=== PATIENT | female | born 1935 | race Caucasian/White ===

== ENCOUNTER 2016-09-27 14:12 | Emergency (ER) | payer MEDICARE, BC ==
--- OUTSIDE RECORDS SUMMARY | 2016-09-27 16:43 | XMS REPORT | Continuity of Care Document ---
:1935 Author Organization [facility] ([facility]) Address [address] [place] [address] Phone [phone] Care Team Providers Name Role Phone Theresa Shah Primary Care Provider [phone] Source Comments This disclosure is being made pursuant to the Care Everywhere program, applicable federal and state laws, and may not contain all informaitonavailable regarding this patient.[facility] ([facility]) Active Allergies and Adverse Reactions Allergen Noted Date Severity Reactions Comments Iopamidol 09/12/[address] IV contrast allergy- Pt states that she previously had trouble breathing following CT IV contrast- has been premedicated for scans at outside hospitals/ clinics. Rabeprazole 04/17/2009 OTHER Legs get weak. Red Dye Upper Airway Edema,Respiratory Distress Current Medications Prescription Sig. Disp. Refills Start Date End Date Status atenolol 50 mg Take 50 mg by Active tablet mouth daily. irbesartan-hydrochlo Take 1 Tab by Active rothiazide (AVALIDE) mouth daily. 300-12.5 mg per tablet levothyroxine 25 mcg Take 25 mcg by Active tablet mouth every morning before breakfast magnesium citrate PO Take by mouth Active as needed. cholecalciferol Take 1,000 Active (VITAMIN D3) 1,000 Units by mouth unit tablet daily. CALCIUM Take 10,000 Active CARBONATE/VITAMIN D3 Units by mouth. (VITAMIN D-3 PO) cyanocobalamin Place 2,500 mcg Active (VITAMIN B-12) 2,500 under the mcg SL tablet tongue daily. FERROUS SULFATE, Active DRIED (IRON (DRIED) PO) acetaminophen Take 325 mg by Active (TYLENOL) 325 mg mouth every 4 tablet hours as needed. predniSONE 50 mg Take 50 mg 13 3 tablet 0 09/14/2016 Active tablet hours before procedure, 50 mg 7 hours before procedure, then 50 mg 1 hour before procedure. CALCIUM Take 2 Tabs by Discontinued CITRATE/VITAMIN D3 mouth daily. 7 (CITRACAL + D PO) MULTIVITAMINS take 1 Tab by Discontinued W-MINERALS/LUT mouth daily. 7 (CENTRUM SILVER PO) diphenhydrAMINE 25 2 capsules (50 2 capsule 0 09/14/2016 mg capsule mg total) as 7 instructed for 1 dose. Take 50 mg 1 hour before the procedure. Active Problems Problem Noted Date Tumor, metastatic 09/12/2016 Osteoarthritis of hip 05/25/2012 Overview: Left hip. 07/11 - replaced. Nonrheumatic aortic valve insufficiency 05/25/2012 Overview: Formatting of this note may be different from the original. CARDIOVASCULAR PROCEDURES Echo/MUGA: Echo (Normal EF, Mild MR, Mild AR) - 08/09/2012 Shingles 02/28/2012 Overview: 01/09. Anti-viral caused adverse effects. Knee pain 04/14/2011 Overview: Right - anserine bursitis, genu vaglus. Shoulder pain 04/14/2011 Overview: Right - glenohumeral, bursitis and tendonitis. PMR (polymyalgia rheumatica) 10/21/2010 Overview: 03/08 sudden onset Hip and shoulder pain with stiffness, difficulty standing up and walking. Mils fever. ESR 75. Meds; Prednisone - off since 07/09. Restarted 04/11. 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 Extensive tumor with near full thickness myometrial invasion, lower uterine segment involvement, capillary lymphatic space invasion, and bilateral tube and ovary involvement. Had involved para-aortic lymph nodes. CAIT/BSO followed by concurrent pelvic and para-aortic radiotherapy and cisplatin chemotherapy which was then followed by cisplatin and taxol chemotherapy. She also received vaginal cuff brachytherapy. She completed her radiation therapy in early 1996. Paresthesia of both legs 10/21/2010 Overview: Thought due to chamo Multiple joint pain 04/17/2009 Overview: 03/08 sudden onset hip and shoulder pain with stiffness, difficulties standing up and walking. Mild fever. Never had similar problems in the past. Responded well to treatemnt with Arthrotec. Her ESR was 75. Dx with possible PMR. Osteoporosis 04/17/2009 Overview: Diagnosed after her cancer treatment in 1995. Currently taking Evista, calcium and vitamin D. Last DEXA scan 2 years ago showed improvement after treatment. Vitamin D 34 8/ Hypertension Most Recent Encounters Date Type Specialty Providers Description 09/26/2016 [facility]: Endometrial Encounter Specialty MD Eder cancer 09/26/2016 Office Visit OBG Reproductive Lillian William, Chief Comp: Patient MD Reported Reason For Visit 09/26/2016 [facility] Radiology [facility], Dx: History of Encounter Israel Sarmiento MD endometrial cancer 09/26/2016 [facility] Radiology [facility], Dx: History of Encounter Israel Sarmiento MD endometrial cancer 09/26/2016 Office Visit Pathology Lillian William, Dx: Endometrial cancer Lab Services, [facility] 09/26/2016 Office Visit OBG Reproductive Lillian William, Chief Comp: Patient MD Reported Reason For Visit 09/26/2016 Ancillary Orders OB Reproductive Lillian William, Dx: History of endometrial cancer (Primary Dx) 09/26/2016 Ancillary Orders OB Reproductive Lillian William Dx: History of endometrial cancer (Primary Dx) 09/26/2016 Surgery Radiology [facility] Ct Guided May Gaines MD Needle Aspiration ([id number]) 09/23/2016 Office Visit Urology Jaime Castillo R, Dx: Bilateral renal MD cysts (Primary Dx) 09/22/2016 Nurse Triage Patient Services Nataliia Blount Chief Comp: N, dining room 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 Question 09/22/2016 Telephone [facility] Roya Nguyen Chief Comp: Follow-up R 09/22/2016 Telephone OBG Reproductive Angel Lundberg, Chief Comp: RN Appointment Info 09/21/2016 Telephone OBG Reproductive Angel Lundberg, Chief Comp: RN Appointment Info 09/21/2016 Orders/Notes OB Reproductive Angel Lundberg, Dx: History of RN endometrial cancer (Primary Dx) 09/15/2016 Telephone Radiology Sarah Villegas Chief Comp: L, RN Appointment Info 09/14/2016 Telephone Orthopaedic Iris Redding Dx: Allergy to IVP dye (Primary Dx) 09/13/2016 Orders/Notes Orthopaedic Iris Redding Dx: Endometrial cancer (Primary Dx) 09/12/2016 Hospital Radiology Lillian Irving, Dx: Paraspinal mass Encounter 09/12/2016 [facility] Radiology Lillian Irving, Dx: Paraspinal mass Encounter 09/12/2016 [facility] Radiology Nasim Hammond, Dx: Paraspinal mass Encounter 09/12/2016 Office Visit Orthopaedic Iris Redding, Dx: Tumor, metastatic (Primary Dx) 09/12/2016 Office Visit OBG Reproductive Lillian William, Dx: Paraspinal mass (Primary Dx) 09/12/2016 [facility] Radiology Tiffani Mae Dx: Endometrial Encounter MD Guillermina cancer 09/09/2016 [facility] Radiology Get Jeter Chief Comp: Patient Encounter MD Jassi Reported Reason For Visit 09/09/2016 [facility] Radiology Get Jeter Chief Comp: Patient Encounter MD Jassi Reported Reason For Visit 09/09/2016 [facility] Radiology Get Jeter Chief Comp: Patient Encounter MD Jassi Reported Reason For Visit 09/09/2016 [facility] Radiology Travis Dhaliwal, Chief Comp: Patient Encounter MD Reported Reason For Visit 09/09/2016 [facility] Radiology Nasim Hammond, Chief Comp: Patient Encounter Reported Reason For Visit 09/08/2016 Office Visit Med Rheumatology Default, Other Chief Comp: Patient Billg - Defo Reported Reason For [place], Tessa, Visit MECHANICAL MAINTENANCE ENGINEER 09/02/2016 [facility]phone [facility] [place] Cari Jo, Chief Comp: RN Scheduling 09/02/2016 Orders/Notes [facility] [place] Cari Jo, Dx: Endometrial RN cancer (Primary Dx) 08/30/2016 Office Visit Pathology Charli, Dx: Neuroendocrine MD Raz malignancy Lab Services, [facility] 08/29/2016 Telephone [facility] Hematology and Fiordaliza Oconnell, Dx: Neuroendocrine doll wig maker malignancy (Primary Dx) 08/19/2016 Telephone [facility] Hematology and Kellie Manuel Chief Comp: Collect Oncology Kiarra Info For Upcoming Appointment 08/19/2016 [facility]phone [facility] [place] Tessa Bradley Chief Comp: Forms and Letters Requests 08/16/2016 Telephone [facility] [place] Tessa Bradley Chief Comp: Follow-up 08/16/2016 [facility]phone [facility] [place] Sonia Lao 08/05/2016 Telephone [facility] Charli, Chief Comp: MD Raz Appointment Request Immunizations Name Dates Previously Given Next Due Influenza, unspecified 05/06/2015,05/13/2009,06/20/1997 Social History Tobacco Use Types Packs/Day Years Used Date Never Smoker Smokeless Tobacco: Never Used Tobacco Cessation:Counseling Given: Yes Comments: Alcohol Use Drinks/Week oz/Week Comments No Last Filed Vital Signs Vital Sign Reading Time Taken Blood Pressure 189/68 09/26/2016 4:30 PM BOXING AND PRESSING SUPERVISOR Pulse 77 09/26/2016 4:30 PM BOXING AND PRESSING SUPERVISOR Temperature 36.7 C (98 F) 09/23/2016 10:50 AM BOXING AND PRESSING SUPERVISOR Respiratory Rate 16 09/26/2016 4:30 PM BOXING AND PRESSING SUPERVISOR Height 1.524 m (5') 09/12/2016 1:46 PM BOXING AND PRESSING SUPERVISOR Weight 73.4 kg (161 lb 13.1 oz) 09/12/2016 1:46 PM BOXING AND PRESSING SUPERVISOR Body Mass Index 31.6 09/12/2016 1:46 PM BOXING AND PRESSING SUPERVISOR Oxygen Saturation 97% 09/26/2016 4:30 PM BOXING AND PRESSING SUPERVISOR Plan of Care Date Type Specialty Providers Description 09/30/2016 Appointment Radiology Chief Comp: Patient Reported Reason For Visit 09/30/2016 Appointment Urology Jaime Castillo MD Chief Comp: Patient [address] [place] [address] Visit [phone] (Fax) 10/03/2016 Appointment OBG Reproductive Lillian William MD Chief Comp: Patient [address] [place] [address] Visit [phone] (Fax) 10/04/2016 Appointment Heart and Vascular MarkOmaira MD Chief Comp: Patient [address] [place] [address] Visit [phone] (Fax) 10/07/2016 Wait List Neurology 10/07/2016 Appointment Neurology Linnea Banegas MD Chief Comp: Patient [address] [place] [address] Visit [phone] (Fax) 10/11/2016 Appointment Med Rheumatology Default, Other Billg - Defo [address] [place] [address] [phone] (Fax) Chief Comp: Patient Mckay Canchola MD [address] [place] [address] [phone] (Fax) Reported Reason For Visit 11/24/2016 Appointment Heart and Vascular MarkOmaira MD Chief Comp: Patient [address] [place] [place] [address] Visit [phone] (Fax) Health Maintenance Due Date Last Done Comments Hepatitis B Vaccine (1 of 3 1935 - Primary Series) Tdap Vaccine 1948 Td Vaccine 12/04/1955 Colonoscopy 1987 Zoster Vaccine 1997 Mammogram 10/20/2001 10/20/2000, Additional history exists 09/21/1999, 08/28/1998 Osteoporosis Screening (DXA 2002 Bone Density) Pneumococcal Vaccine (1 of 2 2002 - PCV13) Lipid Disorder Screening 06/15/2004 06/15/1999 Influenza Vaccine: Seasonal 02/29/2016 05/06/2015, (#1) 05/13/2009, 06/20/1997 Results from Last [address] GUIDED FINE NEEDLE ASPIRATION (31709, 19034) (09/26/2016 3:36 PM) Impressions IMPRESSION: 1. Successful CT guided biopsy of a paraspinal mass PLAN: 1. Patient to be recovered by IR. 2. Patient to continue follow up with primary provider. Narrative PROCEDURE: CT guided paraspinal mass biopsy INDICATIONS: 80-year-old female with history of endometrial cancer and paraspinal mass. Patient presents for biopsy. ACCESS:Right paraspinal mass SPECIMENS:4 passes of right paraspinal mass CONTRAST: None ANESTHESIA:1% Local lidocaine MEDICATION: 1 mg Versed IV, 50 mcg Fentanyl IV. PHYSICIANS:STAFF RADIOLOGIST: Dr. Olguin PASTE THINNER: Mikel Rodriguez PA-C PULSES:Intact bilaterally COMPLICATIONS:None immediate BLOOD LOSS: Minimal FLUORO TIME & DOSE: Not applicable; Procedure done under CT guidance. SEDATION START TIME: 1500 SEDATION STOP TIME: 1515 TECHNIQUE/FINDINGS:The patient was identified.After the risks and benefits of the procedure were discussed with the Patient, an informed written consent was obtained.The patient was then brought back to CT scanner and placed prone on the table.A time out was performed. An entry site was localized using CT guidance along the plane where the existing paraspinal lesion is seen.. The area overlying the planned entry site was marked, prepped and draped in the usual sterile fashion.Approximately 10 ml of 1% lidocaine was infused locally. An 11 blade scalpel was then used to make a tiny entry incision for for a Temno17 gauge x 6 cm introducer needle, which was advanced percutaneously until its tip was seen just beyond the surface of the mass. Next, a Temno 18 gauge x 11 cm biopsy needle was placed within the introducer and 4 core biopsies were obtained and placed in preservative solution and sent to pathology for analysis. The introducer and biopsy needle were then removed. Post biopsy CT showed no immediate complication. The needle was removed. The procedure was terminated here. The patient tolerated the procedure well. There were no complications. Dr. Olguin performed the entire procedure. Mikel Rodriguez PA-C assisted during the procedure.I understand that Section 1842(b)(7)(D) of the Social Security Act generally prohibits Medicare physician fee schedule payment for the services of [id number] in teaching hospitals when qualified residents are available to furnish such service. I certify that the services for which payment is claimed were medically necessary and that no qualified resident was available to perform the services. I further understand that these services are subject to post-payment review by the carrier. Procedure Note [place], Incoming Imaging Results - MonSep 27, 2016 11:34 AM BOXING AND PRESSING SUPERVISOR PROCEDURE: CT guided paraspinal mass biopsy INDICATIONS: 80-year-old female with history of endometrial cancer and paraspinal mass. Patient presents for biopsy. ACCESS: Right paraspinal mass SPECIMENS: 4 passes of right paraspinal mass CONTRAST: None ANESTHESIA: 1% Local lidocaine MEDICATION: 1 mg Versed IV, 50 mcg Fentanyl IV. PHYSICIANS: STAFF RADIOLOGIST: Dr. Olguin PASTE THINNER: Mikel Rodriguez PA-C PULSES: Intact bilaterally COMPLICATIONS: None immediate BLOOD LOSS: Minimal FLUORO TIME & DOSE: Not applicable; Procedure done under CT guidance. SEDATION START TIME: 1500 SEDATION STOP TIME: 1515 TECHNIQUE/FINDINGS: The patient was identified. After the risks and benefits of the procedure were discussed with the Patient, an informed written consent was obtained. The patient was then brought back to CT scanner and placed prone on the table. A time out was performed. An entry site was localized using CT guidance along the plane where the existing paraspinal lesion is seen.. The area overlying the planned entry site was marked, prepped and draped in the usual sterile fashion. Approximately 10 ml of 1% lidocaine was infused locally. An 11 blade scalpel was then used to make a tiny entry incision for for a Temno 17 gauge x 6 cm introducer needle, which was advanced percutaneously until its tip was seen just beyond the surface of the mass. Next, a Temno 18 gauge x 11 cm biopsy needle was placed within the introducer and 4 core biopsies were obtained and placed in preservative solution and sent to pathology for analysis. The introducer and biopsy needle were then removed. Post biopsy CT showed no immediate complication. The needle was removed. The procedure was terminated here. The patient tolerated the procedure well. There were no complications. Dr. Olguin performed the entire procedure. Mikel Rodriguez PA-C assisted during the procedure. I understand that Section 1842(b)(7)(D) of the Social Security Act generally prohibits Medicare physician fee schedule payment for the services of [id number] in teaching hospitals when qualified residents are available to furnish such service. I certify that the services for which payment is claimed were medically necessary and that no qualified resident was available to perform the services. I further understand that these services are subject to post-payment review by the carrier. IMPRESSION IMPRESSION: 1. Successful CT guided biopsy of a paraspinal mass PLAN: 1. Patient to be recovered by IR. 2. Patient to continue follow up with primary provider. US GUIDED FINE NEEDLE ASPIRATION (09/26/2016 11:53 AM) Impressions Impression: 1. Successful US guided aspiration of a complex cystic lesion of the right kidney. 30 cc of straw-colored (and a small amount of bloody fluid) were aspirated and sent to cytology. No complications. --- Final --- Narrative [facility] Department of Radiology Ultrasound Division [address] [place] [address] ULTRASOUND REPORT NAME:SHANNAN ASHFORD Date of Service: 09/26/2016 MRN NO.: [id number] Date: 09/26/2016 Patient's : 1935Resident/Tech: [id number] Christine Louie Patient's Age: 80 yearsReferring MD:LILLIAN WILLIAM Indication: Renal cyst aspiration Technique: US guided right renal FNA biopsy. Findings: Biopsy/Procedure: A written informed consent was obtained after the procedure was discussed with the patient. A timeout procedure was performed. The entry site over the complex cystic lesion of the right kidney was localized using ultrasound guidance. The skin was then prepared and draped in the standard sterile fashion. 10 cc of 1% Xylocaine was used to infiltrate the overlying skin. 3 passes were made with 20G needle(s). 30 cc of straw colored fluid was aspirated from the cystic lesion, with a small amount of bloody fluid by the end of the procedure. The fluid was sent to cytology. Dr. Devine was present in the room for the entire procedure. Complications: There were no complications. The patient tolerated the procedure well. Monitoring: The patient will be monitored in Radiology recovery area for 3 hours and will be given the standard instruction sheet before discharge. Preprocedure MS=105/73, HR=65 ; Postprocedure SP=142/93, HR=66. Procedure Note [place], Incoming Imaging Results - MonSep 26, 2016 4:41 PM BOXING AND PRESSING SUPERVISOR [facility] Department of Radiology Ultrasound Division [address] [place] [address] ULTRASOUND REPORT NAME: SHANNAN ASHFORD Date of Service: 09/26/2016 MRN NO.: [id number] Review Date: 09/26/2016 Patient's : 1935 Resident/Tech: [id number] Christine Louie Patient's Age: 80 years Referring MD: LILLIAN WILLIAM Indication: Renal cyst aspiration Technique: US guided right renal FNA biopsy. Findings: Biopsy/Procedure: A written informed consent was obtained after the procedure was discussedwith the patient. A timeout procedure was performed. The entry site over the complex cystic lesion of the right kidney was localized using ultrasound guidance. The skin was then prepared and draped in the standard sterile fashion. 10 cc of 1% Xylocaine was used to infiltrate the overlying skin.3 passes were made with 20G needle(s). 30 cc of straw colored fluid was aspirated from the cystic lesion, with a small amount of bloody fluid by the end of the procedure. The fluid wassent to cytology. Dr. Devine was present in the room for the entire procedure. Complications: There were no complications. The patient tolerated the procedure well. Monitoring: The patient will be monitored in Radiology recovery area for 3 hours and will be given the standard instruction sheet before discharge. Preprocedure PZ=135/73, HR=65 ; Postprocedure PL=848/93, HR=66. IMPRESSION Impression: 1. Successful US guided aspiration of a complex cystic lesion of the right kidney. 30 cc of straw-colored (and a small amount of bloody fluid) were aspirated and sent to cytology. No complications. --- Final --- CYTOLOGY, FINE NEEDLE ASPIRATE (FNA) (09/26/2016 11:39 AM) Component Value Range Case Report Non-Medicinal Plant Picker Cytopathology Case: [id number] Authorizing Provider:Lillian William MDCollected: 09/26/2016 11:39 AM Ordering Location: Radiology: UltrasoundReceived: 09/26/2016 12:13 PM Pathologist: Dominick Palomares MD Specimen:Cyst Fluid, Right Kidney Cyst Fluid Interpretation Right Kidney Cyst Fluid:Histiocytes and sheets of bland epithelium consistent with benign cyst contents I have personally reviewed this case and edited the report as necessary. Specimen Description 30 mL peach fluid Specimen Other - Cyst Fluid US ABDOMEN LIMITED (09/26/2016 10:00 AM) Impressions Impression: 1. Large cystic lesion of the right kidney demonstrating septations and mild wall calcifications. No solid component amenable to core biopsy. The lesion was marked for US guided aspiration. --- Final --- Narrative [facility] Department of Radiology Ultrasound Division [address] [place] [address] ULTRASOUND REPORT NAME:SHANNAN ASHFORD Date of Service: 09/26/2016 MRN NO.: [id number] Date: 09/26/2016 Patient's : 1935Resident/Tech: [id number] Christine Luoie Patient's Age: 80 yearsReferring MD:LILLIAN WILLIAM Indication: 80 y/o with Patient has a history of Stage IIIC endometrioid carcinoma of the uterus. She has a cystic complex and calcified lesion in the right kidney, please eval for bx. Technique: Limited renal grayscale ultrasound. Comparison: CT. 11/11/2015. Findings: Kidney: + + + + :Structure :Features:Right : + + + + :Kidney:Present/Absent:Present : + + + + ::Size (cm) :9.34 x 5.2 x 3.6: + + + + ::Location:Normal: + + + + ::Shape :Normal : + + + + :Cortex:Echogenicity:Normal: + + + + :Renal Pelvis::No hydronephrosis.: + + + + ::: : + + + + + + + + + -+ :Right Kidney:Location :Size (cm):Echogenicity :Characteristics : + + + + + -+ :Lesion 1:right mid to :8.8x7.1x6.5:anechoic,: containing echogenic : ::lower pole : :septated and cyst:foci, septated and : :: : : :with through : :: : : :transmission : + + + + + -+ Procedure Note [place], Incoming Imaging Results - MonSep 26, 2016 4:42 PM BOXING AND PRESSING SUPERVISOR [facility] Department of Radiology Ultrasound Division [address] [place] [address] ULTRASOUND REPORT NAME: SHANNAN ASHFORD Date of Service: 09/26/2016 MRN NO.: [id number] Review Date: 09/26/2016 Patient's : 1935 Resident/Tech: [id number] Christine Louie Patient's Age: 80 years Referring MD: LILLIAN WILLIAM Indication: 80 y/o with Patient has a history of Stage IIIC endometrioid carcinoma of the uterus. She has a cystic complex and calcified lesion inthe right kidney, please eval for bx. Technique: Limited renal grayscale ultrasound. Comparison: CT. 11/11/2015. Findings: Kidney: + + + + :Structure :Features : Right : + + + + :Kidney :Present/Absent:Present : + + + + : :Size (cm) :9.34 x 5.2 x 3.6 : + + + + : :Location :Normal : + + + + : :Shape :Normal : + + + + :Cortex :Echogenicity :Normal : + + + + :Renal Pelvis: :No hydronephrosis.: + + + + : : : : + + + + + + + + + -+ :Right Kidney:Location :Size (cm) :Echogenicity :Characteristics : + + + + + -+ :Lesion 1 :right mid to :8.8x7.1x6.5:anechoic, :containingechogenic : : :lower pole : :septated and cyst:foci, septatedand : : : : : :with through : : : : : :transmission : + + + + + -+ IMPRESSION Impression: 1. Large cystic lesion of the right kidney demonstrating septations andmild wall calcifications. No solid component amenable to core biopsy. Thelesion was marked for US guided aspiration. --- Final --- DIFFERENTIAL (09/26/2016 9:11 AM) Component Value Range % Neutrophils-Auto Diff 83.2 % Neutrophils-Auto Diff 6400 9121-2914 /MM3 % Lymphocytes-Auto Diff 15.1 % Lymphocytes-Auto Diff 5528 901-6981 /MM3 % Monocytes-Auto Diff 0.9 % Monocytes-Auto Diff 70(L) 130-860 /MM3 % Eosinophils-Auto Diff 0.0 % Eosinophils-Auto Diff 0(L) 40-390 /MM3 % Basophils 0.1 % Basophils-Auto Diff 10 10-136 /MM3 % Immature Granulocytes-Auto Diff 0.7 % Immature Granulocytes-Auto Diff 50 /MM3 Specimen Whole Blood CBC (COMPLETE BLOOD COUNT) (09/26/2016 9:11 AM) Component Value Range WBC Count 7.7 3.7-10.5 K/MM3 RBC Count 3.93(L) 4.00-5.20 M/MM3 Hemoglobin 11.6(L) 11.9-15.5 g/dL Hematocrit 35 35-47 % MCV (Mean Corpuscular Volume) 89 82-99 FL MCH (Mean Corpuscular Hemoglobin) 30 25-35 PG MCHC (Mean Corpuscular Hemoglobin Concentration) 33 32-36 % Platelet Count 201 150-400 K/MM3 MPV (Mean Platelet Volume) 10.7 9.4-12.3 FL RBC Dist Width-STD 45.3 36.4-46.3 FL RBC Distrib Width 14.1 9.0-14.5 % Nucleated RBC 0 /100 WBC Specimen Whole Blood CBC WITH DIFFERENTIAL (09/26/2016 9:11 AM) Specimen Whole Blood Narrative The following orders were created for panel order CBC WITH DIFFERENTIAL. Procedure Abnormality Status --------- ------ CBC (COMPLETE BLOOD COUNT)[[id number]] AbnormalFinal result DIFFERENTIAL[[id number]] AbnormalFinal result Please view results for these tests on the individual orders. PT/INR (PROTHROMBIN TIME/INR) VENOUS (09/26/2016 9:11 AM) Component Value Range PT (Prothrombin Time) 11 9-12 secs INR 1.0 <4.0 Specimen Blood BASIC METABOLIC PANEL W/ CALCIUM (CHEM 8) (09/26/2016 9:11 AM) Component Value Range Sodium 138 135-145 mEq/L Potassium 4.0 3.5-5.0 mEq/L Chloride 99 95-107 mEq/L CO2 26 22-29 mEq/L Anion Gap 13 8-18 mEq/L BUN 23(H) 10-20 mg/dL Creatinine 1.2(H)Comment: 0.5-1.0 mg/dL Creatinine switched to enzymatic method on 12/07/2010.GFR equation switched to IDMS-traceable MDRD equation on 12/07/2010. Calculated GFR values are not valid in clinical settings where serum creatinine is changing. Glucose 135(H)Comment: 65-99 mg/dL The Expert Committee on the Diagnosis and Classification of Diabetes has defined impaired fasting glucose as greater than or equal to 100 mg/dL but less than 126 mg/dL.(Diabetes Care 28 (Suppl 1)S41,2005) Calcium 10.1 8.5-10.5 mg/dL Calculated GFR 43(L) >60 mL/min/1.73 m2 Specimen Blood EXTERNAL MRI-STORE& INTERPRET (09/12/2016 2:04 PM) Impressions Impression: 1. Enhancing soft tissue paraspinal mass extending from T9-T10 to L1 (biopsy proven to be carcinoma most consistent with either gynecologic or renal primary). 2. No other evidence of metastatic disease. CT of the abdomen and pelvis would better evaluate for intra-abdominal pathology. Narrative Outside MRI was performed at 1240 hours on 07/07/2016 at [facility]. 301 images are provided and interpreted on the in-house PACS. Procedure: MRI exam of the thoracic spine with contrast. Indication: 80-year-old female. History of endometrial cancer status post CAIT, BSO, XRT chemotherapy completed 1996. New paraspinal mass consistent with DIRECTOR INSURANCE versus renal cancer. Evaluate for extent of disease and metastases. Technique: Multisequence, multiplanar MRI of the thoracic spine before and after the administration of mL IV contrast. Comparison: External MRI lumbar spine WO contrast (06/17/2016), external CT abdomen (11/11/2015) Findings: There is normal alignment. Vertebral body heights and intervertebral disc spaces are grossly maintained. Visualized cord is within normal limits. Normal marrow signal. Multiple hemangiomas seen in the vertebral bodies. There are mild degenerative changes without significant stenosis. There is an enhancing soft tissue right paraspinal mass extending from T9-T10 to L1 and measuring approximately 7.4 x 2.3 x 5.8 cm in its largest dimensions, also seen on previous outside imaging. No other evidence of metastatic disease. 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 301 images are provided and interpreted on the in-house PACS. Procedure: MRI exam of the thoracic spine with contrast. Indication: 80-year-old female. History of endometrial cancer status post CAIT, BSO, XRT chemotherapy completed 1996. New paraspinal mass consistent with [employer]OR INSURANCE versus renal cancer. Evaluate for extent of disease and metastases. Technique: Multisequence, multiplanar MRI of the thoracic spine before and after the administration of mL IV contrast. Comparison: External MRI lumbar spine WO contrast (06/17/2016), external CT abdomen (11/11/2015) Findings: There is normal alignment. Vertebral body heights and intervertebral disc spaces are grossly maintained. Visualized cord is within normal limits. Normal marrow signal. Multiple hemangiomas seen in the vertebral bodies. There are mild degenerative changes without significant stenosis. There is an enhancing soft tissue right paraspinal mass extending from T9-T10 to L1 and measuring approximately 7.4 x 2.3 x 5.8 cm in its largest dimensions, also seen on previous outside imaging. No other evidence of metastatic disease. IMPRESSION Impression: 1. Enhancing soft tissue paraspinal mass extending from T9-T10 to L1 (biopsy proven to be carcinoma most consistent with either gynecologic or renal primary). 2. No other evidence of metastatic disease. CT of the abdomen and pelvis would better evaluate for intra-abdominal pathology. EXTERNAL CT-STORE& INTERPRET (09/12/2016 2:04 PM) Impressions Impression: 1. Stable right pleural soft tissue masses, unchanged in the past 8 months. 2. Stable complex cystic and calcified lesion in the right kidney. While there is calcification, there does not appear to be a substantial enhancing soft tissue component. Consider further evaluation with either ultrasound or MR. 3. Small nodule anterior abdominal wall adjacent to the surgical scar, may represent postoperative seroma, consider further evaluation ultrasound, this is slightly decreased in size since the study of 8 months ago. Narrative Outside film interpretation requested. Patient name: Shannan Ashford Exam was performed at 1149 hours on 08/03/2016 at [facility]. 246 images are provided and interpreted on the in-house PACS. Procedure: CT exam of the abdomen and pelvis without and with IV contrast. Technique: Exam is performed with IV and enteric contrast and consists of axial noncontrasted imaging through the abdomen; axial venous phase imaging through the abdomen; axial and coronal excretory phase imaging through the abdomen and pelvis. 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 Findings: Small right pleural effusion. Accompanying compressive atelectasis. In the medial pleura posteriorly on the right there is a poorly enhanced soft tissue mass measuring 5.7 x 2.6 x 6.1 cm. This has a mass effect on the adjacent lung but does not appear to involve the overlying ribs or vertebral. This is unchanged from the study of 8 months ago. Anteriorly in the right lower lobe abutting the diaphragm there is a 1.4 x 2.2 x 1.3 cm diameter low density lesion, also unchanged from the prior study. Focal fatty infiltration adjacent to the falciform ligament. No other focal liver lesions. No biliary duct dilation. Gallbladder present. Normal spleen, pancreas, and adrenal glands. Left renal cysts and small extrarenal pelvis. On the right, there is a lobulated cystic mass measuring 7.6 x 8.4 x 5.3 cm. Centrally in this mass there is cluster of partially calcified septations or debris. No definite enhancing component. This is similar to the prior study. No lymphadenopathy. Lower retroperitoneal and left pelvic surgical clips. No ascites or free intraperitoneal air. Small bowel and colon not dilated. Uterus and ovaries not identified with certainty. Bladder partially filled and partially obscured by beam hardening artifact from the patient's left hip prosthesis. Small low-density nodule in the infraumbilical right paramedian anterior abdominal wall adjacent to a healed surgical scar. No destructive bone lesions. 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 Patient name: Shannan Ashford Exam was performed at 1149 hours on 08/03/2016 at [facility]. 246 images are provided and interpreted on the in-house PACS. Procedure: CT exam of the abdomen and pelvis without and with IV contrast. Technique: Exam is performed with IV and enteric contrast and consists of axial noncontrasted imaging through the abdomen; axial venous phase imaging through the abdomen; axial and coronal excretory phase imaging through the abdomen and pelvis. 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 Findings: Small right pleural effusion. Accompanying compressive atelectasis. In the medial pleura posteriorly on the right there is a poorly enhanced soft tissue mass measuring 5.7 x 2.6 x 6.1 cm. This has a mass effect on the adjacent lung but does not appear to involve the overlying ribs or vertebral. This is unchanged from the study of 8 months ago. Anteriorly in the right lower lobe abutting the diaphragm there is a 1.4 x 2.2 x 1.3 cm diameter low density lesion, also unchanged from the prior study. Focal fatty infiltration adjacent to the falciform ligament. No other focal liver lesions. No biliary duct dilation. Gallbladder present. Normal spleen, pancreas, and adrenal glands. Left renal cysts and small extrarenal pelvis. On the right, there is a lobulated cystic mass measuring 7.6 x 8.4 x 5.3 cm. Centrally in this mass there is cluster of partially calcified septations or debris. No definite enhancing component. This is similar to the prior study. No lymphadenopathy. Lower retroperitoneal and left pelvic surgical clips. No ascites or free intraperitoneal air. Small bowel and colon not dilated. Uterus and ovaries not identified with certainty. Bladder partially filled and partially obscured by beam hardening artifact from the patient's left hip prosthesis. Small low-density nodule in the infraumbilical right paramedian anterior abdominal wall adjacent to a healed surgical scar. No destructive bone lesions. IMPRESSION Impression: 1. Stable right pleural soft tissue masses, unchanged in the past 8 months. 2. Stable complex cystic and calcified lesion in the right kidney. While there is calcification, there does not appear to be a substantial enhancing soft tissue component. Consider further evaluation with either ultrasound or MR. 3. Small nodule anterior abdominal wall adjacent to the surgical scar, may represent postoperative seroma, consider further evaluation ultrasound, this is slightly decreased in size since the study of [address] FILMS - STORE ONLY (09/09/2016 2:34 PM)EXTERNAL MRI - STORE ONLY ( 09/09/2016 2:33 PM)EXTERNAL CT - STORE ONLY (09/09/2016 12:36 PM)SURGICAL PATHOLOGY EXAM (08/30/2016 8:51 AM) Component Value Range Case Report Surgical Pathology Case: [id number] Authorizing Provider:Raz Augustin MDCollected: 08/30/2016 08:51 AM [facility] Lab[facility]: 08/30/2016 08:51 AM Pathologist: Trish Caldera MD Specimen:Outside material Diagnosis Soft tissue, right paraspinal, biopsy ([id number]; 07/14/16): Metastatic PAX8 positive carcinoma. See comment. I have personally reviewed this case and edited the report as necessary. Comment There is no evidence of neuroendocrine differentiation. Diffuse PAX8 positivity is consistent with either a gynecologic primary or a renal primary.Recommend clinicopathologic correlation. Clinical Information 80 year old woman with right paraspinal mass. Please review outside slides and send remaining unstained slides to [facility] in [facility]. Please complete Ki67 and sst2R staining. Gross Description [id number], 10 slides; date of specimen: 07/14/16 [id number], 1 block (A1=A1) Received from [facility], Department of Pathology, [address] [place] [id number], phone: [phone]. Microscopic Description Reviewed are two H and E stained slides and eight immunostained slides (PAX8, estrogen receptors, CD10, TTF1, GATA3, CDX2 with controls), all labeled [id number], with a corresponding pathology report. Tumor cells are positive for PAX8 and negative for estrogen receptors, CD10, TTF1, GATA3 and CDX2.Additional immunostains, performed at [facility], show the tumor cells to be negative for estrog en and progesterone receptors, synaptophysin and chromogranin. Microscopic examination performed and supports the diagnosis. Performed by:Catalina Allison MD, Fellow/rls IHC Section IHC: All controls show appropriate reactivity. This test was developed and its performance characteristics determined by the immunopathology Laboratory at the [facility] and [facility]. It has not been cleared or approved by the US Food and Drug Administration.FDA does not require this test to go through premarket FDA review.This test is used for clinical purposes.It should not be regarded as investigational or fo r research. This laboratory is certified under the Clinical Laboratory Improvement Amendments (CLIA) as qualified to perform high complexity clinical laboratory testing. Specimen Tissue - Outside material
--- NOTE | 2016-09-27 17:12 | ERNOTE ---
Medical Problem HPI - General Chief Complaint: General Assessment Time Seen by Provider: 09/27/16 16:35 Source: patient, family Exam Limitations: no limitations - Immun/Allergies/Home Medications Immunizations: IMMUNIZATION HX History of Influenza Vaccine Yes Hx Pneumococcal Vaccination Yes Allergies/Adverse Reactions: Allergies hydrocortisone acetate [From Hydrocortone Acetate] Allergy (Unknown, Verified 14:28) red dye Allergy (Unknown, Verified 09/27/16 14:28) iontophoresis Adverse Reaction (Uncoded 09/27/16 14:28) solumedrol Adverse Reaction (Uncoded 09/27/16 14:28) Home Medications: HOME MEDICATIONS Atenolol [Tenormin] 50 mg PO DAILY 12/09/15 [Last Taken 12/08/15] Irbesartan/Hydrochlorothiazide [Avalide 300-12.5 mg Tablet] 1 each PO DAILY 06/15 [Last Taken 12/08/15] Levothyroxine Sodium [Synthroid] 25 mcg PO DAILY 12/09/15 [Last Taken 12/08/15] - History of Present History Narrative: Patient is here for hypertension. She has been on blood pressure medication for years and recently started to measure it again. Over the last week her blood pressure have been running high in the 180's to 200's systolic. She was recently diagnosed with cancer and she had biopsies at the [facility] yesterday. Her blood pressure at that time was running over 200. She denies any symptoms, just feels fatigued Review of Systems - Review of Systems Constitutional: Present: recent illness. Absent: fever, chills EYE: Absent: double vision, vision changes ENT: Absent: nose congestion, sore throat Respiratory: Absent: shortness of breath, cough Cardiology: Absent: chest pain Gastrointestinal/Abdominal: Absent: nausea, vomiting, abdominal pain Genitourinary: Present: no symptoms reported Neurological: Absent: headache, weakness, numbness Hematologic/Lymphatic: Absent: easy bruising - Patient's Past Medical History Patient History - Medical: Cataracts, GERD, Other Patient History - Cardiac/Respiratory: Hypertension, Hyperlipidemia Patient History - Cancer: Kidney, Chemotherapy history, Ovarian, Radiation Therapy Patient History - Surgical Procedures: Hysterectomy Patient History - Other: None - Social History Living Situations: home Abuse History: No History of abuse Psych History: No pertinent hx Smoking Status: Never smoker Alcohol Use: none Drug Use: none - Immunizations Hx Pneumococcal Vaccination: Yes History of Influenza Vaccine: Yes Physical Exam - Physical Exam General Appearance: Present: wd/wn, alert, no apparent distress, anxious Eye Exam: Normal inspection: bilateral, PERRL: bilateral, EOMI: bilateral Ears, Nose, Throat: Present: normal ENT inspection, normal pharynx Neck: Present: normal inspection, supple Respiratory: Present: no respiratory distress, normal breath sounds, no accessory muscle use, lungs clear Cardiovascular/Chest: Present: regular rate, rhythm, no murmur Gastrointestinal/Abdominal: Present: soft Neurological Exam: Present: alert, oriented, normal mood/affect, no motor/ sensory deficits Skin Exam: Present: normal color, warm/dry ED Progress - Vital Signs Patient's Vital Signs:: I have reviewed the patient's vital signs. Vital Signs: Vital Signs 09/27/16 14:24 Pulse Rate 62 Respiratory 12 Rate Blood Pressure 161/57 O2 Sat by Pulse 97 Oximetry - Progress/Reassessment Chief Complaint: General Assessment Progress Note-Subjective: 09/27/16 17:00 discussed with family that blood pressure is most likely due to her recent stress as well as the fact that she might require more blood pressure as she is getting older and has not checked her blood pressure until recently. Offered blood work, family declined as she just had a lot of blood work done yesterday (though it is not available to us) discussed adjusting medications and keep a record of the blood pressure til they see Dr Flores next week Departure - Departure Clinical Impression: Hypertension, uncontrolled Disposition: Home self-care Condition: Good Instructions: Hypertension, Clxl-rx-Eqrh Additional Instructions: take half a pill of your atenolol when you get home, starting tomorrow morning take one and a half of your atenolol (50mg) pills take yur blood pressure a couple times a day, write down the results and discussed with Dr Flores when you see her next week Referrals: Theresa Shah MD [Primary Care Provider] - Omaira Flores MD [Associate] -
[2016-09-27 17:19] VITALS: BP 175/61
== END 2016-09-27 17:05 | disposition home or self-care (01) ==
LOC: ER 14:12
DX: I10 Essential (primary) hypertension (principal); Z85.528 Personal history of other malignant neoplasm of kidney; Z85.43 Personal history of malignant neoplasm of ovary

== ENCOUNTER 2016-10-18 12:15 | Emergency (ER) | payer MEDICARE, BC ==
--- NOTE | 2016-10-18 13:20 | ERNOTE ---
Lower Extremity HPI - Narrative Date of Service: 10/18/16 - General Lower Extremities Pain: foot: left Time Seen by Provider: 10/18/16 13:09 Source: patient, family, RN notes reviewed Exam Limitations: no limitations - Immun/Allergies/Home Medications Immunizations: IMMUNIZATION HX History of Influenza Vaccine Yes Hx Pneumococcal Vaccination Yes Allergies/Adverse Reactions: Allergies Allergy/AdvReac Type Severity Reaction Status Date / Time hydrocortisone acetate Allergy Unknown Verified 10/18/16 12:41 [From Hydrocortone Acetate] red dye Allergy Unknown Verified 10/18/16 12:41 iontophoresis AdvReac Uncoded 10/18/16 12:41 solumedrol AdvReac Uncoded 10/18/16 12:41 Home Medications: HOME MEDICATIONS Atenolol [Tenormin] 50 mg PO DAILY 12/09/15 [Last Taken 12/08/15] Irbesartan/Hydrochlorothiazide [Avalide 300-12.5 mg Tablet] 1 each PO DAILY 06/15 [Last Taken 12/08/15] Levothyroxine Sodium [Synthroid] 25 mcg PO DAILY 12/09/15 [Last Taken 12/08/15] Carbidopa/Levodopa 25/100 [Sinemet 25/100] 1 tab PO TID 10/18/16 [Last Taken Unknown] Ferrous Sulfate [Iron] 325 mg PO DAILY 10/18/16 [Last Taken Unknown] Loratadine [Claritin] 10 mg PO DAILY 10/18/16 [Last Taken Unknown] Magnesium Citrate 100 mg PO DAILY 10/18/16 [Last Taken Unknown] - History of Present Illness Narrative: 80 y/o female sent to the ED from the clinic for a possible DVT. She has been having swelling and discoloration in her left foot for several days. She denies any pain in the extremity. She has no prior history of coagulopathies. Method of Injury: Reports: no apparent injury Prior Treament: Denies: similar symptoms before Review of Systems - Review of Systems Constitutional: Absent: fever, chills, malaise EYE: Present: no symptoms reported ENT: Present: no symptoms reported Respiratory: Absent: shortness of breath, cough Cardiology: Present: edema. Absent: chest pain, claudication Gastrointestinal/Abdominal: Present: no symptoms reported Genitourinary: Present: no symptoms reported Musculoskeletal: Absent: joint pain, joint swelling Skin: Present: change in color. Absent: rash, lesions, lumps Neurological: Absent: weakness, numbness, tingling Endocrine: Present: no symptoms reported Hematologic/Lymphatic: Present: no symptoms reported Psych: Present: no symptoms reported - Patient's Past Medical History Patient History - Medical: Cataracts, GERD, Other Patient History - Cardiac/Respiratory: Hypertension, Hyperlipidemia Patient History - Cancer: Kidney, Chemotherapy history, Ovarian, Radiation Therapy Patient History - Surgical Procedures: Hysterectomy, Total Hip Replacement Patient History - Other: None - Family History Family History:: no family history of clotting disorders - Social History Living Situations: home Abuse History: No History of abuse Psych History: No pertinent hx Smoking Status: Never smoker Alcohol Use: none Drug Use: none - Immunizations Hx Pneumococcal Vaccination: Yes History of Influenza Vaccine: Yes Physical Exam - Physical Exam General Appearance: Present: wd/wn, alert, no apparent distress Neck: Present: normal inspection, nontender, supple Respiratory: Present: no respiratory distress, normal breath sounds, no accessory muscle use, lungs clear Cardiovascular/Chest: Present: regular rate, rhythm, diastolic murmur Peripheral Pulses: N=norm/S=strong/W=weak/B=bound/A=absent: Dorsalis-pedis (R): Normal, Dorsalis-pedis (L): Normal Extremity Exam: Present: normal range of motion, extremity edema - ankles and feet, mild. Absent: calf tenderness, joint swelling Neurological Exam: Present: alert, oriented, normal mood/affect, no motor/ sensory deficits Skin Exam: Present: warm/dry, other - left foot with mild reddish/purple discoloration ED Progress - Vital Signs Patient's Vital Signs:: I have reviewed the patient's vital signs. Vital Signs: Vital Signs 10/18/16 12:31 Temperature 36.8 C Pulse Rate 74 Respiratory 16 Rate Blood Pressure 149/83 O2 Sat by Pulse 99 Oximetry - CT/Ultrasound CT/Ultrasound Narrative: US of LLE negative for DVT - Progress/Reassessment Chief Complaint: Lower Extremity Pain/ Injury Progress:: Unchanged Departure Clinical Impression: Lower extremity edema Qualifiers: Laterality: left Qualified Code(s): R60.0 - Localized edema - Departure Disposition: Home self-care Condition: Good Instructions: Deep Vein Thrombosis Additional Instructions: Continue your routine medications Follow up with your doctor as needed, or return for worsening symptoms Referrals: Theresa Shah MD [Primary Care Provider] -
[2016-10-18 14:56] VITALS: BP 187/76
--- OUTSIDE RECORDS SUMMARY | 2016-10-18 19:31 | XMS REPORT | Continuity of Care Document ---
:1935 Author Organization [facility] ([facility]) Address [address] [place] [address] Phone [phone] Care Team Providers Name Role Phone Theresa Shah Primary Care Provider [phone] Source Comments This disclosure is being made pursuant to the Care Everywhere program, applicable federal and state laws, and may not contain all informaitonavailable regarding this patient.[facility] ([facility]) Active Allergies and Adverse Reactions Allergen Noted [...] Date End Date Status atenolol 50 mg tablet Take 100 mg by Active mouth daily. irbesartan-hydrochlor Take 1 Tab by Active othiazide (AVALIDE) mouth daily. 300-12.5 mg per tablet levothyroxine 25 mcg Take 25 mcg by Active tablet mouth every morning before breakfast magnesium citrate PO Take by mouth Active as needed. cholecalciferol Take 2,000 Active (VITAMIN D3) 1,000 Units by mouth unit tablet daily. CALCIUM Take 10,000 Active CARBONATE/VITAMIN D3 Units by mouth. (VITAMIN D-3 PO) FERROUS SULFATE, Active DRIED (IRON (DRIED) PO) acetaminophen Take 325 mg by Active (TYLENOL) 325 mg mouth every 4 tablet hours as needed. multivitamin tablet Take 1 tablet Active by mouth daily. cyanocobalamin Place 2,500 mcg Discontinued (VITAMIN B-12) 2,500 under the 7 mcg SL tablet tongue daily. predniSONE 50 mg Take 50 mg 13 3 tablet 0 09/14/2016 Discontinued tablet hours before 7 procedure, 50 mg 7 hours before procedure, then 50 mg 1 hour before procedure. Active Problems Problem Noted Date Tumor, [...] showed improvement after treatment. Vitamin D 34 03/09 Hypertension Thoracic aneurysm without mention of rupture Most Recent Encounters Date Type Specialty Providers Description 10/17/2016 Orders/Notes Cardiac Omaira Flores MD Dx: Aortic valve Rehabilitation insufficiency (Primary Dx) 10/11/2016 Office Visit Med Rheumatology Default, Other Chief Comp: Patient Billg - Defo Reported Reason For Mckay Canchola, Visit 10/11/2016 Orders/Notes Urology Jaime Castillo, Dx: Renal mass (Primary Dx) 10/10/2016 Hospital Radiology Britney Carias, Dx: Mass Encounter MD 10/10/2016 Orders/Notes Cardiac Omaira Flores MD Dx: Mass (Primary Dx) Rehabilitation 10/07/2016 Office Visit Neurology Linnea Banegas, Chief Comp: Patient MD Reported Reason For Visit 10/04/2016 Office Visit Heart and Vascular Omaira Flores MD Dx: Nonrheumatic aortic valve insufficiency (Primary Dx) 10/03/2016 Office Visit OBG Reproductive Lillian William, Subj: Upcoming Appt MD Reminder 10/03/2016 Telephone Cancer Center Cari Jo, Chief Comp: Results RN 10/03/2016 Orders/Notes Cancer Center Cari Jo, Dx: Paraspinal mass RN (Primary Dx) 09/30/2016 Office Visit Urology Jaime Castillo, Chief Comp: Patient MD Reported Reason For Visit 09/30/2016 Hospital Radiology Travis Dhaliwal, Dx: Bilateral renal Encounter MD abdi 09/30/2016 Telephone Urology Jaime Castillo MD 09/28/2016 Telephone Med Rheumatology Mckay Canchola, Chief Comp: Patient MD Concern 09/26/2016 [facility] Internal Medicine Houston Olguin Dx: Endometrial Encounter Hugo Gaines MD cancer 09/26/2016 Office Visit OBG Reproductive Lillian William, Chief Comp: Patient MD Reported Reason For Visit 09/26/2016 Hospital Radiology Abu-Yousef, Dx: History of Encounter Israel Sarmiento MD endometrial cancer 09/26/2016 Hospital Radiology Abu-Yousef, Dx: History of Encounter Israel Sarmiento MD endometrial cancer 09/26/2016 Office Visit Pathology Lillian William, Dx: Endometrial MD cancer Lab Services, Pf 09/26/2016 Office Visit OBG Reproductive Lillian William, Chief Comp: Patient MD Reported Reason For Visit 09/26/2016 Ancillary Orders OBG Reproductive Lillian William, Dx: History of MD endometrial cancer (Primary Dx) 09/26/2016 Ancillary Orders OBG Reproductive Lillian William, Dx: History of MD endometrial cancer (Primary Dx) 09/26/2016 Surgery Radiology [place] Olgu[address] Ct Guided May Gaines MD Needle Aspiration ([id number], [id number]) 09/23/2016 Office Visit Urology Jaime Castillo R, Dx: Bilateral renal MD cysts (Primary Dx) 09/22/2016 Nurse Triage Patient Services Nataliia Blount Chief Comp: N, iron carrier Question 09/22/2016 Telephone Cancer Center FransiscokennedyRoya Chief Comp: Follow-up R 09/22/2016 Telephone OBG Reproductive ToñoRev anisaital, Chief Comp: RN Appointment Info 09/21/2016 Telephone OBG Reproductive Toño Revital, Chief Comp: RN Appointment Info 09/21/2016 Orders/Notes OBG Reproductive Rev Toñoital, Dx: History of RN endometrial cancer (Primary Dx) 09/15/2016 Telephone Radiology Sarah Villegas Chief Comp: L, RN Appointment Info 09/14/2016 Telephone Orthopaedic Iris Redding Dx: Allergy to IVP dye (Primary Dx) 09/13/2016 Orders/Notes Orthopaedic Iris Redding Dx: Endometrial cancer (Primary Dx) 09/12/2016 Hospital Radiology Lillian Irving, Dx: Paraspinal mass Encounter 09/12/2016 Hospital Radiology Lillian Irving, Dx: Paraspinal mass Encounter 09/12/2016 [facility] Radiology Nasim Hammond, Dx: Paraspinal mass Encounter 09/12/2016 Office Visit Orthopaedic Iris Redding, Dx: Tumor, metastatic (Primary Dx) 09/12/2016 Office Visit OBG Reproductive Lillian William, Dx: Paraspinal mass (Primary Dx) 09/12/2016 [facility] Radiology Tiffani Mae Dx: Endometrial Encounter MD Anisa cancer 09/09/2016 [facility] Radiology Get Jeter Chief Comp: Patient Encounter MD Jassi Reported Reason For Visit 09/09/2016 [facility] Radiology Get Jeter Chief Comp: Patient Encounter MD Jassi Reported Reason For Visit 09/09/2016 Hospital Radiology Get Jeter Chief Comp: Patient Encounter MD Jassi Reported Reason For Visit 09/09/2016 Hospital Radiology Travis Dhaliwal, Chief Comp: Patient Encounter MD Reported Reason For Visit 09/09/2016 Hospital Radiology Nasim Hammond, Chief Comp: Patient Encounter MD Reported Reason For Visit 09/08/2016 Office Visit Med Rheumatology Default, Other Chief Comp: Patient Billg - Defo Reported Reason For DanielamaTessa, Visit CONGRESSIONAL DISTRICT AIDE 09/02/2016 Telephone Cancer Center Cari Jo, Chief Comp: RN Scheduling 09/02/2016 Orders/Notes Cancer Center Cari Jo, Dx: Endometrial RN cancer (Primary Dx) 08/30/2016 Office Visit Pathology Charli, Dx: Neuroendocrine MD Raz malignancy Lab Services, [facility] 08/29/2016 Telephone Med Hematology and Fiordaliza Oconnell, Dx: Neuroendocrine mule spinner malignancy (Primary Dx) 08/19/2016 Telephone Med Hematology and Kellie Manuel Chief Comp: Collect Oncology Kiarra Info For Upcoming Appointment 08/19/2016 Telephone [facility] Tessa Bradley Chief Comp: Forms and Letters Requests 08/16/2016 Telephone [facility] Tessa Bradley Chief Comp: Follow-up 08/16/2016 Telephone [facility] Sonia Lao 08/05/2016 Telephone [facility] Charli, Chief Comp: MD Raz Appointment Request Immunizations Name Dates Previously Given Next Due Influenza, unspecified 05/06/2015,05/13/2009,06/20/1997 Social History Tobacco Use Types Packs/Day Years Used Date Never Smoker Smokeless Tobacco: Never Used Tobacco Cessation:Counseling Given: Yes Comments: Alcohol Use Drinks/Week oz/Week Comments No Last Filed Vital Signs Vital Sign Reading Time Taken Blood Pressure 122/60 10/04/2016 2:31 PM [facility]MOND SORTER Pulse 70 10/04/2016 2:31 PM [facility] SORTER Temperature 36.7 C (98 F) 09/23/2016 10:50 AM [facility] S[facility]TER Respiratory Rate 16 09/26/2016 4:30 PM [facility]MON[facility] SORTER Height 1.524 m (5') 10/04/2016 2:31 PM [facility] SORTER Weight 75.297 kg (166 lb) 10/04/2016 2:31 PM [facility] SORTER Body Mass Index 32.42 10/04/2016 2:31 PM [facility] SORTER Oxygen Saturation 97% 09/26/2016 4:30 PM [facility] SORTER Plan of Care Date Type Specialty Providers Description 10/24/2016 Appointment Neurosurgery Sylvester Thapa Chief Comp: Patient III, Reported Reason For [address] [place] [address] [phone] (Fax) 11/24/2016 Appointment Heart and Vascular Omaira Flores MD Chief Comp: Patient [address] [place] [address] Visit [phone] (Fax) 04/14/2017 Appointment Radiology Chief Comp: Patient Reported Reason For Visit 04/14/2017 Appointment Urology Jaime Castillo MD Chief Comp: Patient [address] [place] [address] Visit [phone] (Fax) 04/18/2017 Appointment Heart and Vascular Omaira Flores MD Chief Comp: Patient [address] [place] [address] Visit [phone] (Fax) Health Maintenance Due Date Last Done [...] 05/13/2009, 06/20/1997 Results from Last 3 Months EXTERNAL MRI - STORE ONLY (10/10/2016 10:48 AM)Only the most recent of2 resultswithin the time period is included.MRI ABDOMEN W/WO CONTRAST ([id number]) (09/2016 4:00 PM) Impressions Impression: 1. Complex right renal cyst is decreased in size, likely secondary to interval aspiration. This has several thin septations with mild coarse calcification on comparison CT and is likely benign (Bosniak 2F). No solid components. Continued follow-up with ultrasound is suggested. 2. Subcentimeter hemorrhagic right renal cyst. Additional simple cysts bilaterally. 3. Mass within the right costophrenic angle with development of a small right pleural effusion, possibly secondary to prior biopsy. 4. Small ventral abdominal wall fluid collection may represent a seroma. Narrative Procedure: MRI ABDOMEN W/WO CONTRAST ([id number]) Clinical Indication: Complex right renal cyst. 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 Evaluate renal cysts and include Bosniak category. Technique: MRI of the abdomen with attention to the kidneys was performed on a 1.5 Gilda scanner using the torso coil. Imaging sequences consisted of 3 plane TrueFISP localizer, coronal T2 HASTE localizer, axial T1 FLASH in- and [id number], axial T2 fat-sat MAGNUS, axial diffusion-weighted imaging, Ax T2 HASTE, Ax T2* GRE, Ax Biederer MRA, pre-contrast axial fat-sat T1 FLASH, pre-contrast and multiphase post-contrast axial fat-sat T1 3D VIBE, and post-contrast coronal fat-sat T1 FLASH.Imaging was performed before and after administration of IV Gadavist. 7.3 ml of IV contrast was administered. Comparison:CT abdomen and pelvis 08/03/2016, Findings: Lower chest: Previous biopsied mass in the right posterior costophrenic angle is partially imaged. Small right pleural effusion is seen. Liver: Normal Bile ducts: Not dilated. Gallbladder: Normal. Pancreas: Normal Spleen: Normal Adrenal glands: Normal Kidneys: Lobulated cystic mass involving the inferior pole of the right kidney demonstrates several thin septations without significant internal enhancement and measures approximately 5.6 x 5.3 x 6.8 cm, previously 6.5 x 7.3 x 7.1 cm. This has mild internal calcifications, better demonstrated on comparison CT within the more superior septations. A 7 mm hemorrhagic cyst is noted at the midpole of the right kidney as well. Additional smaller simple cysts are seen in the bilateral kidneys. Ureters: Normal Aorta: Normal Retroperitoneum: No lymphadenopathy. Peritoneum: Trace pelvic ascites. Mesentery: Normal Stomach and bowel: Not distended. Abdominal wall: Small infraumbilical cystic collection in the ventral abdominal wall measuring 2.7 x 1.4 cm. This has thin peripheral enhancement compatible with a simple cyst. Bones: Left hip arthroplasty. Convex right curvature of the thoracolumbar junction. Procedure Note Selwyn, Incoming Imaging Results - MonSep 30, 2016 6:02 PM [facility]MOND SORTER Procedure: MRI ABDOMEN W/WO CONTRAST ([id number]) Clinical Indication: Complex right renal cyst. 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 Evaluate renal cysts and include Bosniak category. Technique: MRI of the abdomen with attention to the kidneys was performed on a 1.5 Gilda scanner using the torso coil. Imaging sequences consisted of 3 plane TrueFISP localizer, coronal T2 HASTE localizer, axial T1 FLASH in- and [id number], axial T2 fat-sat MAGNUS, axial diffusion-weighted imaging, Ax T2 HASTE, Ax T2* GRE, Ax Biederer MRA, pre-contrast axial fat-sat T1 FLASH, pre-contrast and multiphase post-contrast axial fat-sat T1 3D VIBE, and post-contrast coronal fat-sat T1 FLASH. Imaging was performed before and after administration of IV Gadavist. 7.3 ml of IV contrast was administered. Comparison: CT abdomen and pelvis 08/03/2016, Findings: Lower chest: Previous biopsied mass in the right posterior costophrenic angle is partially imaged. Small right pleural effusion is seen. Liver: Normal Bile ducts: Not dilated. Gallbladder: Normal. Pancreas: Normal Spleen: Normal Adrenal glands: Normal Kidneys: Lobulated cystic mass involving the inferior pole of the right kidney demonstrates several thin septations without significant internal enhancement and measures approximately 5.6 x 5.3 x 6.8 cm, previously 6.5 x 7.3 x 7.1 cm. This has mild internal calcifications, better demonstrated on comparison CT within the more superior septations. A 7 mm hemorrhagic cyst is noted at the midpole of the right kidney as well. Additional smaller simple cysts are seen in the bilateral kidneys. Ureters: Normal Aorta: Normal Retroperitoneum: No lymphadenopathy. Peritoneum: Trace pelvic ascites. Mesentery: Normal Stomach and bowel: Not distended. Abdominal wall: Small infraumbilical cystic collection in the ventral abdominal wall measuring 2.7 x 1.4 cm. This has thin peripheral enhancement compatible with a simple cyst. Bones: Left hip arthroplasty. Convex right curvature of the thoracolumbar junction. IMPRESSION Impression: 1. Complex right renal cyst is decreased in size, likely secondary to interval aspiration. This has several thin septations with mild coarse calcification on comparison CT and is likely benign (Bosniak 2F). No solid components. Continued follow-up with ultrasound is suggested. 2. Subcentimeter hemorrhagic right renal cyst. Additional simple cysts bilaterally. 3. Mass within the right costophrenic angle with development of a small right pleural effusion, possibly secondary to prior biopsy. 4. Small ventral abdominal wall fluid collection may represent a seroma. IR CT GUIDED FINE NEEDLE ASPIRATION ([id number], [id number]) (09/26/2016 3:36 PM) Impressions IMPRESSION: 1. Successful [...] mcg Fentanyl IV. PHYSICIANS:STAFF RADIOLOGIST: Dr. Olguin PALLET ASSEMBLER: Mikle Rodriguez PA-C PULSES:Intact bilaterally COMPLICATIONS:None immediate BLOOD [...] fee schedule payment for the services of [id number] in teaching hospitals when qualified residents are available to furnish such service. I certify that the services for which payment is claimed were medically necessary and that no qualified resident was available to perform the services. I further understand that these services are subject to post-payment review by the carrier. Procedure Note Selwyn, Incoming Imaging Results - MonSep 27, 2016 11:34 AM [facility]MON[facility] SORTER PROCEDURE: CT guided paraspinal mass biopsy INDICATIONS: 80-year-old female with history of endometrial cancer and paraspinal mass. Patient presents for biopsy. ACCESS: Right paraspinal mass SPECIMENS: 4 passes of right paraspinal mass CONTRAST: None ANESTHESIA: 1% Local lidocaine MEDICATION: 1 mg Versed IV, 50 mcg Fentanyl IV. PHYSICIANS: STAFF RADIOLOGIST: Dr. Olguin PALLET ASSEMBLER: Mikel Rodriguez PA-C PULSES: Intact bilaterally COMPLICATIONS: [...] fee schedule payment for the services of [id number] in teaching hospitals when qualified residents are [...] to continue follow up with primary provider. CYTOLOGY, FINE NEEDLE ASPIRATE (FNA) (09/26/2016 3:35 PM)Only the most recent of2 resultswithin the time period is included. Component Value Range Case Report Non-Incident Response Manager Cytopathology Case: [id number] Authorizing Provider:Lillian William MDCollected: 09/26/2016 03:35 PM Ordering Location: Interventional Radiology:Received: 09/26/2016 03:35 PM Procedure Pathologist: Dominick Palomares MD Specimen:Other, Specify, Paraspinal Mass Core Biopsy Interpretation Soft tissue, paraspinal mass, CT guided core biopsy and touch preparation:[place]field mesothelial proliferation, See comment. Comment:The tumor cells appear morphologically similar to the prior biopsy from the same site ([id number]) and dissimilar from the prior endometrioid adenocarcinoma ([id number]) .Immunohistoche mical stains show positive staining for CK7, CK5/6, PAX-8, WT-1 and focal staining for D2-40, calretinin and MOC-31. Mucicarmine special stain is negative. Despite the expression of PAX-8, the bland h istological features and the immunohistochemical staining profile is most consistent with a mesothelial line of differentiation.Considerations include an adenomatoid tumor and well differentiated papillary mesothelioma.Dr. Caldera has seen this case in consultation. I have personally reviewed this case and edited the report as necessary. Specimen Description Paraspinal Mass, Core Biopsy Received in formalin, in a container labeled with Shannan Ashford And hospital number are three cabrera cylindrical soft tissue cores 0.2 - 1.3 cm in length x 0.1 cm in diameter, all submitted in A1. Adequacy Assessment Paraspinal Mass, Core Biopsy Touch Prep Adequacy Assessment 1: (Passes 1-3):Adequate material for diagnosis. LOUIS Simental MD, Fellow Microscopic Microscopic examination performed on core biopsy and supports the diagnosis. Specimen Other - Other, Specify US GUIDED FINE NEEDLE ASPIRATION (09/26/2016 11:53 AM) Impressions Impression: 1. Successful US guided aspiration of a complex cystic lesion of the right kidney. 30 cc of straw-colored (and a small amount of bloody fluid) were aspirated and sent to cytology. No complications. --- Final --- Narrative [facility] Department of Radiology Ultrasound Division [address] [place] [address] ULTRASOUND REPORT NAME:SHANNAN ASHFORD Date of Service: 09/26/2016 MRN NO.: [id number] Date: 09/26/2016 Patient's : 1935Resident/Tech: [id number] Christine [...] the standard instruction sheet before discharge. Preprocedure OV=896/73, HR=65 ; Postprocedure TL=642/93, HR=66. Procedure Note Selwyn, Incoming Imaging Results - MonSep 26, 2016 4:41 PM [facility] Department of Radiology Ultrasound Division [address] [place] [address] ULTRASOUND REPORT NAME: SHANNAN ASHFORD Date of Service: 09/26/2016 MRN NO.: [id number] Review Date: 09/26/2016 Patient's : 1935 Resident/Tech: [...] the standard instruction sheet before discharge. Preprocedure RY=171/73, HR=65 ; Postprocedure BH=701/93, HR=66. IMPRESSION Impression: 1. Successful US guided aspiration of a complex cystic lesion of the right kidney. 30 cc of straw-colored (and a small amount of bloody fluid) were aspirated and sent to cytology. No complications. --- Final --- US ABDOMEN LIMITED (09/26/2016 10:00 AM) Impressions Impression: 1. Large cystic lesion of the right kidney demonstrating septations and mild wall calcifications. No solid component amenable to core biopsy. The lesion was marked for US guided aspiration. --- Final --- Narrative [facility] Department of Radiology Ultrasound Division [address] [place] [address] ULTRASOUND REPORT NAME:SHANNAN ASHFORD Date of Service: 09/26/2016 MRN NO.: [id number] Date: 09/26/2016 Patient's : 1935Resident/Tech: [id number] Christine Louei Patient's Age: 80 yearsReferring MD:LILLIAN WILLIAM Indication: [...] Procedure Note Selwyn, Incoming Imaging Results - Mon Sep 26, 2016 4:42 PM [facility] Department of Radiology Ultrasound Division [address] [place] [address] ULTRASOUND REPORT NAME: SHANNAN ASHFORD Date of Service: 09/26/2016 MRN NO.: [id number] Review Date: 09/26/2016 Patient's : 1935 Resident/Tech: [...] Neutrophils-Auto Diff 83.2 % Neutrophils-Auto Diff 6400 8967-7415 /MM3 % Lymphocytes-Auto Diff 15.1 % Lymphocytes-Auto Diff 3522 721-7909 /MM3 % Monocytes-Auto Diff 0.9 % Monocytes-Auto [...] Abnormality Status --------- ------ CBC (COMPLETE BLOOD COUNT)[[id number]] AbnormalFinal result DIFFERENTIAL[[id number]] AbnormalFinal result Please view results for these [...] performed at 1240 hours on 07/07/2016 at [facility]. 301 images are provided and interpreted on the in-house PACS. Procedure: MRI exam of the thoracic spine with contrast. Indication: 80-year-old female. History of endometrial cancer status post CAIT, BSO, XRT chemotherapy completed 1996. New paraspinal mass consistent with NIPPLE THREADER versus renal cancer. Evaluate for extent of [...] Results - MonSep 12, 2016 5:16 PM [facility]MOND SORTER Outside MRI was performed at 1240 hours on 07/07/2016 at [facility]. 301 images are provided and interpreted on the in-house PACS. Procedure: MRI exam of the thoracic spine with contrast. Indication: 80-year-old female. History of endometrial cancer status post CAIT, BSO, XRT chemotherapy completed 1996. New paraspinal mass consistent with NIPPLE THREADER versus renal cancer. Evaluate for extent of [...] performed at 1149 hours on 08/03/2016 at [facility]. 246 images are provided and interpreted on [...] completed 1996, new paraspinal mass consistent with charge lpn vs renal cancer, please eval for extent [...] Results - MonSep 16, 2016 3:50 PM [facility]MON[facility] SORTER Outside film interpretation requested. Patient name: Shannan Ashford Exam was performed at 1149 hours on 08/03/2016 at [facility]. 246 images are provided and interpreted on [...] completed 1996, new paraspinal mass consistent with charge lpn vs renal cancer, please eval for extent [...] FILMS - STORE ONLY (09/09/2016 2:34 PM)EXTERNAL CT - STORE ONLY ( 12:36 PM)SURGICAL PATHOLOGY EXAM (08/30/2016 8:51 AM) Component Value Range Case Report Surgical Pathology Case: [id number] Authorizing Provider:Raz Augustin MDCollected: 08/30/2016 08:51 AM [facility] LabReceived: 08/30/2016 08:51 AM Pathologist: Trish Caldera MD Specimen:Outside material Amendment Per discussion with the Gynecology-Oncology clinical team at [facility], the tumor in the patient's remote hysterectomy specimen ([id number]) is compared to this current PAX8-positive paraspinal mass. The two lesions are morphologically different. Additional immunohistochemical studies show the lesional cells to be positive for WT-1, RYDER and calretinin and negative for BerEp4 and D2-40. Based on these findings, the diagnosis is amended to the following: Soft tissue, right paraspinal, biopsy ([id number];07/14/16): Richfield mesothelial proliferation. Diagnosis Soft tissue, right paraspinal, biopsy ([id number]; 07/14/16): Metastatic PAX8 positive carcinoma. See comment. [...] complete Ki67 and sst2R staining. Gross Description [id number], 10 slides; date of specimen: 07/14/16 [id number], 1 block (A1=A1) Received from [facility], Department of Pathology, [address] [place] [address], phone: [phone]. Microscopic Description Reviewed are two H and E stained slides and eight immunostained slides (PAX8, estrogen receptors, CD10, TTF1, GATA3, CDX2 with controls), all labeled [id number], with a corresponding pathology report. Tumor cells are positive for PAX8 and negative for estrogen receptors, CD10, TTF1, GATA3 and CDX2.Additional immunostains, performed at [facility], show the tumor cells to be negative for estrog en and progesterone receptors, synaptophysin and chromogranin. Microscopic examination performed and supports the diagnosis. Performed by:Catalina Allison MD, Fellow/rls IHC Section IHC: All controls show appropriate reactivity. This test was developed and its performance characteristics determined by the immunopathology Laboratory at the [facility] and [facility]. It has not been cleared or approved [...]
== END 2016-10-18 14:57 | disposition home or self-care (01) ==
LOC: ER 12:15
DX: R60.0 Localized edema (principal); I10 Essential (primary) hypertension; Z85.528 Personal history of other malignant neoplasm of kidney; Z85.43 Personal history of malignant neoplasm of ovary; Z92.21 Personal history of antineoplastic chemotherapy; Z92.3 Personal history of irradiation